=== PATIENT | female | born 1940 | race Caucasian/White ===

== ENCOUNTER 2023-05-23 09:57 | Emergency (ER) | payer MEDICARE ==
[2023-05-23 10:36] VITALS: TEMP 98
[2023-05-23] MEDS ORDERED: IBUPROFEN 800 MG TAB PO STA (10:47)
[2023-05-23] MEDS ORDERED: HYDROcodone/APAP 7.5-325MG 1 EACH TAB PO ONE (10:47)
--- NOTE | 2023-05-23 10:51 | ED ---
Fall HPI - General Chief Complaint: Fall Stated Complaint: Fell off step r side from hip to shoulder Time Seen by Provider: 05/23/23 10:38 Source: patient, RN notes reviewed Mode of arrival: ambulatory Limitations: no limitations - History of Present Illness Initial Comments: This is an 83-year-old female who presents to the emergency department for a fa ll. Patient states that she has macular degeneration and when she was coming down concrete steps yesterday, she missed a step, and tripped, falling on her right side. Does not believe that she hit her head, but states that if she did it was very light and it does not hurt. Denies any loss of consciousness. She is not taking any blood thinners. The majority of her pain is to the right hip, right wrist, and right rib cage. She has barely been able to ambulate since the fall. She is taking Advil with no relief in symptoms. Does report a history of osteopenia. She is from [place] and is here visiting family, but plans to return tomorrow. MD Complaint: fall - Related Data Home Medications Medication Instructions Recorded Confirmed Calcium Carbonate/Vitamin D3 1 tab PO DAILY 05/23/23 05/23/23 [Calcium 600 mg-Vit D3 10 mcg (400 Unit)] Loratadine [Claritin] 10 mg PO DAILY 05/23/23 05/23/23 Multivitamins, Thera [Multivitamin 1 tab PO DAILY 05/23/23 05/23/23 (formulary)] Vit C/E/Zn/Coppr/Lutein/Zeaxan 1 cap PO BID 05/23/23 05/23/23 [Preservision Areds 2 Softgel] Previous Rx's Medication Instructions Recorded HYDROcodone/APAP 7.5-325MG [G[place] 1 tab PO Q6HR PRN 3 Days #12 tab 05/23/23 7.5-325] Ibuprofen [Motrin] 800 mg PO Q8H PRN #30 tab 05/23/23 Allergies Allergy/AdvReac Type Severity Reaction Status Date / Time No Known Allergies Allergy Verified 05/23/23 14:02 Review of Systems ROS Statement: Those systems with pertinent positive or pertinent negative responses have been documented in the HPI. ROS Other: All systems not noted in ROS Statement are negative. Past Medical History Past Medical History: Eye Disorder History of Any Multi-Drug Resistant Organisms: None Reported Smoking Status: Former smoker Past Alcohol Use History: None Reported Past Drug Use History: None Reported General Exam Limitations: no limitations General appearance: alert, in distress Head exam: Present: atraumatic, normocephalic, normal inspection Respiratory exam: Present: normal lung sounds bilaterally. Absent: respiratory distress, wheezes, rales, rhonchi, stridor Cardiovascular Exam: Present: regular rate, normal rhythm, normal heart sounds. Absent: systolic murmur, diastolic murmur, rubs, gallop, clicks Extremities exam: Present: other (Tenderness to palpation over the right greater trochanter. Limited range of motion of the right lower extremity secondary to pain. 2+ DP and PT pulses. Capillary refill less than 1 second. Tenderness to palpation over the dorsal aspect of the right wrist. 2+ radial pulses.) Neurological exam: Present: alert, oriented X3, CN II-XII intact Psychiatric exam: Present: normal affect, normal mood Skin exam: Present: warm, dry, intact, normal color. Absent: rash Course Vital Signs 05/23/23 05/23/23 10:22 14:44 Temperature 98.0 F Pulse Rate 71 76 Respiratory 16 17 Rate Blood Pressure 146/75 127/62 O2 Sat by Pulse 97 97 Oximetry Medical Decision Making - Medical Decision Making This is an 83-year-old female who presents to the emergency department for right hip pain after a fall. Was pt. sent in by a medical professional or institution? @ -No Did you speak to anyone other than the patient for history? @ -No Did you review nursing and triage notes? @ -Yes, and I agree, it is accurate with regards to the patient's symptoms. Were old charts reviewed? @ -No Differential Diagnosis? @ -Differential Musculoskeletal: Muscular strain, contusion, ligament sprain, fracture, arthritis, septic arthritis, bursitis, cellulitis, muscle spasm, nerve compression, DVT, arterial occlusion, herpes zoster, electrolyte abnormality, tumor.... This is not meant to be in all inclusive list EKG interpreted by me (3pts min.)? @ -Not obtained X-rays interpreted by me (1pt min.)? @ -XR of the right hip obtained. My interpretation identifies a fracture of the right os pubis and right inferior pubic ramus. X-ray of the right wrist and x-ray of the PA chest and rib cage obtained as well. My interpretation of the right wrist x-ray identifies no acute fractures. I also identified no acute rib fractures CT interpreted by me (1pt min.)? @ -Computed tomography scan of the pelvis obtained. My interpretation identifies inferior and superior pubic rami fractures. U/S interpreted by me (1pt. min.)? @ -Not obtained What testing was considered but not performed? (CT, X-rays, U/S, labs)? Why? @ -None What meds were considered but not given? Why? @ -None Did you discuss the management of the patient with other professionals? @ -Yes, Desmond Kemp with [facility]. He advised obtaining a computed tomography scan of the pelvis for further evaluation and advised that the patient can likely be discharged home with a walker to weight-bear as tolerated and follow-up with orthopedics outpatient. Did you reconcile home meds? @ -No Was smoking cessation discussed for >3mins.? @ -No Was critical care preformed (if so, how long)? @ -No Were there social determinants of health that impacted care today? How? (Homelessness, low income, unemployed, alcoholism, drug addiction, transportation, low edu. Level, literacy, decrease access to med. care, skilled nursing, rehab)? @ -No Was there de-escalation of care discussed even if they declined? (Discuss DNR or withdrawal of care, Hospice)? @ -No What co-morbidities impacted this encounter? (DM, HTN, Smoking, COPD, CAD, Cancer, CVA, Hep., AIDS, mental health diagnosis, sleep apnea, morbid obesity)? @ -Macular degeneration, osteopenia Was patient admitted / discharged? @ -Discharged. X-ray of the right hip, right wrist, and right rib cage with PA chest obtained. X-ray of the right hip reveals a fracture of the right os pubis and right inferior pubic ramus. We then obtained a pelvic x-ray, this demonstrated the same right os pubis and right inferior pubic ramus fracture. Her pain was well-controlled with G[place] and ibuprofen. I did speak with Desmond Kemp with [facility]. He advised a computed tomography scan of the pelvis for further evaluation. This redemonstrated the right inferior and superior pubic rami fractures without any other fractures identified. She does also have a pelvic hematoma secondary to the fracture with slight bladder displacement. Orthopedics advised that she can ambulate as tolerated with a walker and pain medication. For this reason, a prescription for a walker was faxed over to [facility], and brought to the patient prior to discharge. This is required for the patient to perform her ADLs due to the pubic rami fracture. She was also sent home with a disc and paper interpret ation of her pelvic computed tomography scan, as the patient is from [place] and will plan to bring this with her to follow-up appointment with orthopedics. Patient does plan on returning to [place] tomorrow. She was given prescriptions for G[place] and ibuprofen with dosing instructions reviewed. Advised alternating ibuprofen with Tylenol and taking the [place] sparingly when her pain is the most severe. Also advised this can be sedating. She was otherwise discharged home in stable condition. Undiagnosed new problem with uncertain prognosis? @ -None Drug Therapy requiring intensive monitoring for toxicity (Heparin, Nitro, Insulin, Cardizem)? @ -None Were any procedures done? @ -None Diagnosis/symptom? @ -Fall, pubic rami fracture Acute, or Chronic, or Acute on Chronic? @ -Acute Uncomplicated (without systemic symptoms) or Complicated (systemic symptoms)? @ -Uncomplicated Side effects of treatment? @ -None Exacerbation, Progression, or Severe Exacerbation] @ -Not applicable Poses a threat to life or bodily function? @ -Yes, this will impact her ability to ambulate. Return precautions reviewed in depth, the patient is instructed to return to the emergency department with any new, worsening, or concerning symptoms. Patient verbalized understanding. This case was discussed in detail with the attending ED physician, Dr. Loya. Presentation, findings, and treatment plan discussed in detail as well. - Radiology Data Radiology results: report reviewed, image reviewed Disposition Clinical Impression: Fall, Fracture of pubic ramus Disposition: HOME SELF-CARE Instructions (If sedation given, give patient instructions): Pelvic Fracture (ED) Additional Instructions: Return to the emergency department with any new, worsening, or concerning symptoms. Alternate with ibuprofen and Tylenol as needed for pain relief. Take the [place] sparingly when your pain is the most severe and be aware that this may make you drowsy. You can weight-bear as tolerated with a walker. Follow-up with your primary care provider and orthopedic provider when you return home to [place]. Prescriptions: Ibuprofen [Motrin] 800 mg PO Q8H PRN #30 tab PRN Reason: Pain HYDROcodone/APAP 7.5-325MG [[place] 7.5-325] 1 tab PO Q6HR PRN 3 Days #12 tab PRN Reason: Pain Is patient prescribed a controlled substance at d/c from ED?: Yes When asked, does pt state using other controlled substances?: No If prescribed controlled substance>3 days was MAPS reviewed?: Prescribed <3 Days Referrals: [facility],Equipment [NON-STAFF] - (Supplier of two wheeled walker. ) Nonstaff,Physician [Primary Care Provider] - 1-2 days
--- NOTE | 2023-05-23 11:42 | XR ---
EXAMINATION TYPE: XR wrist complete RT DATE OF EXAM: 05/23/2023 CLINICAL HISTORY: pain TECHNIQUE: Frontal, lateral and oblique images of the right wrist are obtained. COMPARISON: None. FINDINGS: There is no acute fracture/dislocation evident. The joint spaces appear within normal limits. The o verlying soft tissue appears unremarkable. IMPRESSION: There is no acute fracture or dislocation seen. ICD 10 NO FRACTURE, INITIAL EVALUATION
--- NOTE | 2023-05-23 11:43 | XR ---
EXAMINATION TYPE: XR Hip Complete RT DATE OF EXAM: 05/23/2023 CLINICAL HISTORY: pain TECHNIQUE: AP and frogleg views of the right hip are obtained. COMPARISON: None. FINDINGS: Right hip is grossly intact. There is cortical irregularity involving the right inferior pu bic ramus as well as the superior aspect of the right os pubis. IMPRESSION: 1. Fractures of the right os pubis and right inferior pubic ramus. Right hip is intact.
--- NOTE | 2023-05-23 11:47 | XR ---
EXAMINATION TYPE: XR ribs RT w pa chest xray DATE OF EXAM: 05/23/2023 COMPARISON: NONE HISTORY: Pain TECHNIQUE: Single view of the chest 4 views of the ribs are submitted. FINDINGS: The lungs are clear. No Evidence for pneumothorax. No evidence for focal contusion. Medi astinal structures are midline. Evaluation of the ribs fails to demonstrate evidence for displaced r ib fracture or secondary sign of rib fracture. Incidental note is made of cholelithiasis. IMPRESSION: Negative study
--- NOTE | 2023-05-23 12:30 | XR ---
EXAMINATION TYPE: XR pelvis AP view DATE OF EXAM: 05/23/2023 12:25 PM CLINICAL INDICATION:Female, 83 years old with history of Pelvic fracture; [facility] COMPARISON: None TECHNIQUE: The pelvis was examined in a single projection. FINDINGS: Scattered pelvic phleboliths. There is a fracture through the superior and inferior pubic r amus on the right. The femur appears intact. IMPRESSION: Right superior and inferior pubic ramus fracture mild displacement. The femur appears intact.
--- NOTE | 2023-05-23 13:55 | CT ---
EXAMINATION TYPE: CT pelvis wo con CT DLP: 281.7 mGycm, Automated exposure control for dose reduction was used. DATE OF EXAM: 05/23/2023 1:48 PM COMPARISON: Recent radiograph same day. CLINICAL INDICATION:Female, 83 years old with history of Pelvic fracture; Fall, pelvic fx TECHNIQUE: Axial CT of the ;CT pelvis wo con;Sagittal and coronal reformats were created on a [employer] workstation. Contrast used: mL of , (none if empty) Oral contrast used: without Oral Contrast (none if empty) FINDINGS: BLADDER: Displaced laterally to left secondary to hematoma described below. REPRODUCTIVE: Unremarkable. STOMACH AND BOWEL: No evidence of bowel obstruction. Few scattered colonic diverticula. PERITONEUM/RETROPERITONEUM: There is a pelvic hematoma near the anterior bladder on the right measuri ng up to 10.4 x 5.7 cm which displaces the urinary bladder laterally to the left in the prevascular s pace of [place]. VASCULATURE: No evidence of aortic aneurysm. MUSCULOSKELETAL: There is an acute fracture of the right superior and inferior pubic ramus with corti loreto buckling of the inferior pubic ramus and mild effacement of the superior pubic ramus. The femur a ppears intact. The sacrum appears intact. No additional fractures are visualized. LYMPH NODES: No gross evidence for lymphadenopathy. SOFT TISSUE/ABDOMINAL WALL: Unremarkable IMPRESSION: 1. Similar findings 2 radiograph. Right inferior and superior pubic rami fractures with minimal disp lacement. No additional fractures visualized. 2. Pelvic hematoma secondary to #1 with displacement bladder leftward. 3. Clonic diverticulosis.
[2023-05-23 15:00] VITALS: BP 127/62; PULSE 76; RESP 17
== END 2023-05-23 14:52 | disposition home or self-care (01) ==
LOC: EC 09:57
DX: S32.511A Fracture of superior rim of right pubis, initial encounter for closed fracture (principal); K57.32 Diverticulitis of large intestine without perforation or abscess without bleeding; Z87.891 Personal history of nicotine dependence; W01.0XXA Fall on same level from slipping, tripping and stumbling without subsequent striking against object, initial encounter
CPT/HCPCS: 72170; 72192; 73502; 99284